=== PATIENT | female | born 1950 | race American Indian/Alaskan Native ===

== ENCOUNTER 2016-11-17 15:18 | Emergency (ER) | payer OTHER ==
[~2016-11-17] VITALS: Ht 154.9 cm; Wt 61.2 kg
[~2016-11-17 15:18] MED LIST: ACIDOPHILUS1 EAC4 PO; CALCIUM 500 +1 EAC4 PO; CETIRIZINE HCL10 M2 PO; CYMBALTA30 MG PO; DICLOFENAC SODI50 MG PO; DICYCLOMINE HCL20 MG PO; DULOXETINE HCL60 MG PO; FLEXERIL10 MG PO; NASONEX17 GM BOTH NARES; NOHOMEMEDS; PANTOPRAZOLE SO40 MG PO; REGLAN10 MG PO
[2016-11-17] MEDS ORDERED: FEXOFENADINE HC60 MG PO (15:46)
[2016-11-17] MEDS ORDERED: FLEXERIL10 MG PO (16:15)
[2016-11-17 16:30] VITALS: BP 150/83
== END 2016-11-17 16:33 | disposition home or self-care (01) ==
LOC: EME 15:18 → EXP 15:18
DX: M54.2 Cervicalgia (principal); M62.838 Other muscle spasm; R51 Headache; V49.40XA Driver injured in collision with unspecified motor vehicles in traffic accident, initial encounter; Y92.410 Unspecified street and highway as the place of occurrence of the external cause; Z87.891 Personal history of nicotine dependence
CPT/HCPCS: 99281; 99283; J1885